=== PATIENT | male | born 1980 | race Hispanic/Latino ===

== ENCOUNTER 2020-08-19 16:15 | Emergency (ER) | payer OTHER ==
[2020-08-19 16:25] VITALS: BP 140/78
[2020-08-19] MEDS ORDERED: MOTRIN400 MG/TAB PO (16:30)
[2020-08-19] MEDS ORDERED: CYCLOBENZAPR5 MG PO (16:30)
== END 2020-08-19 16:48 | disposition home or self-care (01) | DRG 563 ==
LOC: ED 16:15
DX: S46.812A Strain of other muscles, fascia and tendons at shoulder and upper arm level, left arm, initial encounter (principal); X50.3XXA Overexertion from repetitive movements, initial encounter; Y93.89 Activity, other specified; Y92.73 Farm field as the place of occurrence of the external cause; Y99.0 Civilian activity done for income or pay